=== PATIENT | female | born 1990 | race African-American/Black ===

== ENCOUNTER 2016-12-22 15:06 | Emergency (ER) | payer SELFPAY ==
[2016-12-22 15:27] LABS: Bilirubin Negative (Negative); Blood, Urine Large (Negative); Clarity Clear (Clear); Glucose, Urine (Dipstick) Negative (Negative); Leukocyte Trace (Negative); Nitrite Negative (Negative); Protein, Urine (Dipstick) Trace mg/dL (Neg-Trace)
[2016-12-22] MEDS ORDERED: Ibuprofen 800 MG TAB ONE (15:28)
[2016-12-22 15:33] LABS: Pregnancy Test - Urine (BHCG) Negative (Negative); Pregu Control Background? CLEAR/WHITE (CLR/WHITE); Pregu Control Bar Appear? YES (CONTROL BAR); Specific Gravity 1.031 (1.002-1.036)
[2016-12-22 15:34] LABS: Specific Gravity, Urine 1.031 (1.002-1.036)
[2016-12-22 15:35] LABS: Bacteria/HPF Rare-Few HPF (None Seen); RBC/HPF 0-3 HPF (0-3)
[2016-12-22] MEDS ORDERED: Nitrofurantoin Macrocrystal 50 MG CAP ONE (15:43)
== END 2016-12-22 15:55 | disposition home or self-care (01) ==
LOC: NAV ERS 15:06
DX: N39.0 Urinary tract infection, site not specified (principal)
CPT/HCPCS: 81003; 81015; 81025; 87086; 99283

== ENCOUNTER 2017-02-12 00:03 | Emergency (ER) | payer SELFPAY ==
[2017-02-12 00:21] LABS: Bilirubin Negative (Negative); Blood, Urine Moderate (Negative); Clarity Clear (Clear); Glucose, Urine (Dipstick) Negative (Negative); Leukocyte Negative (Negative); Nitrite Negative (Negative); Protein, Urine (Dipstick) Negative (Neg-Trace); Urobilinogen 0.2 mg/dL (0.2-1.0)
[2017-02-12] MEDS ORDERED: Mag-Al Plus 1200 MG/1200 MG/120 MG/30 ML UDCUP ONE (00:21)
[2017-02-12] MEDS ORDERED: Famotidine 20 MG TAB ONE ×2 (00:21→00:26)
[2017-02-12] MEDS ORDERED: Lidocaine Viscous Sol 2% 15 ml UD Cup ONE (00:21)
[2017-02-12 00:23] LABS: Bacteria/HPF None Seen HPF (None Seen); RBC/HPF 21-50 HPF (0-3); Specific Gravity, Urine 1.024 (1.002-1.036); WBC/HPF None Seen HPF (0-3)
[2017-02-12 00:24] LABS: Pregnancy Test - Urine (BHCG) Negative (Negative); Pregu Control Background? CLEAR/WHITE (CLR/WHITE); Pregu Control Bar Appear? YES (CONTROL BAR); Specific Gravity 1.024 (1.002-1.036)
== END 2017-02-12 00:41 | disposition home or self-care (01) ==
LOC: NAV ERS 00:03
DX: R10.9 Unspecified abdominal pain (principal)
CPT/HCPCS: 81003; 81015; 81025; 99284

== ENCOUNTER 2017-02-15 22:35 | Emergency (ER) | payer SELFPAY | END 2017-02-16 00:04 | disposition home or self-care (01) | LOC: NAV ERS 22:35 | DX: R10.13 Epigastric pain (principal); Z79.899 Other long term (current) drug therapy | CPT/HCPCS: 99283 ==

== ENCOUNTER 2017-04-14 07:19 | Emergency (ER) | payer OTHER, SELFPAY | END 2017-04-14 07:55 | disposition home or self-care (01) | LOC: NAV ERS 07:19 | DX: J11.1 Influenza due to unidentified influenza virus with other respiratory manifestations (principal); R11.2 Nausea with vomiting, unspecified; Z79.899 Other long term (current) drug therapy | CPT/HCPCS: 99283 ==